=== PATIENT | female | born 1975 | race Caucasian/White ===

== ENCOUNTER 2016-10-14 06:27 | Inpatient (IN) | payer SELFPAY ==
[~2016-10-14 06:27] MED LIST: Buffered Lidocaine 1% SYR 3ML* 3 ML/SYR SYRINGE INTRADERM ONE; Famotidine IV* 10 MG/ML 2 ML (20 mg) IV ONE; PROCHLORPERAZINE INJ 5 MG/ML 2 ML VIAL IV PRN; oxyCODONE/Acetamin 5/325 MG* TAB PO PRN
[2016-10-14 07:07] LABS: UR Preg Internal Control QC Line Present
[2016-10-14] MEDS ORDERED: Methylene Blue 1%* 10 ML VIAL ONE ×2 (07:11→09:23)
[2016-10-14] MEDS ORDERED: EPINEPHrine AMP 1 MG/ML ONE (07:11)
[2016-10-14] MEDS ORDERED: Lidocaine 2% PF* 10 ML AMP ONE ×2 (07:11→08:21)
[2016-10-14] MEDS ORDERED: Sodium Bicarbonate 8.4% SYR* 10 ML SYRINGE ONE (07:12)
[2016-10-14] MEDS ORDERED: Bupivacaine 0.5% SDV PF* 30 ML VIAL ONE (07:12)
[2016-10-14] MEDS ORDERED: Ondansetron INJ* 2 MG/ML VIAL ONE (07:14)
[2016-10-14] MEDS ORDERED: Famotidine IV* 10 MG/ML 2 ML (20 mg) ONE (07:15)
[2016-10-14] MEDS ORDERED: Dexamethasone IV* 4 MG/ML 1 ML (4 MG) ONE (07:15)
[2016-10-14] MEDS ORDERED: Scopolamine 1.5 mg* PATCH ONE (07:15)
[2016-10-14] MEDS ORDERED: ceFAZolin 2 GM PREMIX (*) 2 GM/50 ML BAG IVPB ONE (07:15)
[2016-10-14] MEDS ORDERED: Midazolam* 1 MG/ML 5 ML VIAL (5 MG) ONE (07:21)
[2016-10-14] MEDS ORDERED: Atracurium* 10 MG/ML 10 ML VIAL ONE (07:21)
[2016-10-14] MEDS ORDERED: fentaNYL* 50 MCG/ML 2 ML VIAL (100 MCG VIAL) ONE ×4 (07:21→11:55)
[2016-10-14] MEDS ORDERED: KETAMINE HCL* 50 MG/ML 10 ML VIAL ONE (07:21)
[2016-10-14] MEDS ORDERED: Morphine INJ* 10 MG/ML 1 ML CARPUJECT ONE ×2 (08:12→11:24)
[2016-10-14] MEDS ORDERED: Propofol* 10 MG/ML 20 ML BTL IV PUSH ONE (08:21)
[2016-10-14] MEDS ORDERED: EPHEDrine (Pressors)* 50 MG/ML VIAL ONE (08:35)
[2016-10-14] MEDS ORDERED: PROCHLORPERAZINE INJ 5 MG/ML 2 ML VIAL ONE (10:11)
[2016-10-14] MEDS: fentaNYL* 50 MCG/ML 2 ML VIAL (100 MCG VIAL) IV PRN ×5 (11:26→12:02)
[2016-10-14] MEDS: Morphine INJ* 2 MG/ML 1 ML CARPUJECT IV PRN ×2 (11:42→11:50)
[2016-10-14] MEDS ORDERED: Acetaminophen TAB* 325 MG PO PRN (13:08)
[2016-10-14] MEDS ORDERED: Magnesium Hydroxide LIQ* 30 ML UDC PO PRN (13:09)
[2016-10-14] MEDS ORDERED: Ondansetron INJ* 2 MG/ML VIAL IV PRN (13:09)
[2016-10-14] MEDS ORDERED: Al Hydrox/Mg Hydrox/Simet LIQ* 30 ML UDC PO PRN (13:09)
[2016-10-14] MEDS ORDERED: diPHENhydraMINE IV* 50 MG/ML 1 ml VIAL (BENADRYL) IV PRN (13:09)
[2016-10-14] MEDS ORDERED: diPHENhydraMINE PO* 25 MG PO PRN ×2 (13:10)
[2016-10-14] MEDS ORDERED: Cetirizine* 10 MG TAB PO PRN (13:10)
[2016-10-14] MEDS ORDERED: ALPRAZolam TAB* 0.25 MG PO PRN (13:11)
[2016-10-14] MEDS ORDERED: Mometasone 220 MCG MDI INH PRN (13:12)
[2016-10-14] MEDS ORDERED: Montelukast Sodium TAB* 10 MG PO PRN (13:14)
[2016-10-14] MEDS ORDERED: NS 0.9% 1000 ML* 1,000 ML IV SCH (13:15)
[2016-10-14] MEDS ORDERED: Albuterol HFA INHALER* 8 gm MDI INH PRN (13:15)
[2016-10-14] MEDS ORDERED: HYDROmorphone INJ* 1 MG/ML CARPUJECT SYRINGE ONE (13:18)
[2016-10-14] MEDS ORDERED: EPINEPHrine AMP 1 MG/ML IM PRN (13:19)
[2016-10-14] MEDS: HYDROmorphone INJ* 1 MG/ML CARPUJECT SYRINGE IV PRN ×2 (13:23→19:31)
[2016-10-14] MEDS: HYDROcodone/ACETAMIN 5-325 MG* 1 TAB PO PRN ×2 (15:11→21:32)
[2016-10-14] MEDS: Ascorbic Acid TAB* 500 MG PO SCH (18:15)
[2016-10-14] MEDS: [UNRECOGNIZED DRUG - OTHER] TOPICAL SCH (21:28)
[2016-10-15] MEDS: HYDROmorphone INJ* 1 MG/ML CARPUJECT SYRINGE IV PRN ×2 (00:05→06:19)
[2016-10-15] MEDS: HYDROcodone/ACETAMIN 5-325 MG* 1 TAB PO PRN ×3 (02:16→11:40)
[2016-10-15] MEDS: Ascorbic Acid TAB* 500 MG PO SCH (08:51)
[2016-10-15] MEDS: [UNRECOGNIZED DRUG - OTHER] TOPICAL SCH (08:54)
[2016-10-15] MEDS ORDERED: Vitamin THERAPEUTIC TAB PO SCH (09:00)
[2016-10-15] MEDS ORDERED: Ferrous Sulfate TAB* 325 MG PO SCH (09:00)
[2016-10-15] MEDS ORDERED: [UNRECOGNIZED DRUG - OTHER] PO SCH (09:00)
[2016-10-15 12:23] VITALS: BP 105/63
--- NOTE | 2017-01-30 10:28 | DS ---
DISCHARGE SUMMARY: DATE OF ADMISSION: 10/14/16 DATE OF DISCHARGE: 10/15/16 PRINCIPAL DIAGNOSIS: Cosmetic surgery. SUMMARY: The patient is a 41-year-old female who complained of loose skin in the abdomen after with twins. Her weight was 225 pounds at and she now weighs 135 pounds. Weight has been stable for over a year. The patient was taken to the operating room on 10/14/16 and underwent full abdominoplasty under general anesthesia. The patient tolerated the procedure well. Her in-hospital postoperative convalescent course was uncomplicated. By the next day, her pain was under control. She was able to ambulate and abdominal wound was noted to be healing well. She was discharged home with [address] with arrangements made for followup in my office in 5 days. The patient was given instructions including activity level, wound care, medication and followup. [id number] #: [id number] MTDD
== END 2016-10-15 12:15 | disposition home or self-care (01) | DRG 581 ==
LOC: AA 06:27 → SSU 12:52
PROVIDERS: ADMIT Plastic Surgery; ATTEND Plastic Surgery
PROC: 0W0F0ZZ Alteration of Abdominal Wall, Open Approach (ICD-10-PCS; principal; 2016-10-14 07:45)
DX: L98.7 Excessive and redundant skin and subcutaneous tissue (principal); F41.9 Anxiety disorder, unspecified; J45.909 Unspecified asthma, uncomplicated; Z91.040 Latex allergy status
CPT/HCPCS: 81025; 88300; A9270-GY; J0171; J0690; J0780; J1100; J1170; J2001; J2250; J2270; J2405; J2704; J3010

== ENCOUNTER 2017-04-23 09:11 | Day surgery (SDC) | payer SELFPAY ==
[~2017-04-23 09:11] MED LIST changes: +Buffered Lidocaine 0.9% SYRIN* 5 ML/SYR SYRINGE INTRADERM ONE; -Buffered Lidocaine 1% SYR 3ML* 3 ML/SYR SYRINGE INTRADERM ONE; -Famotidine IV* 10 MG/ML 2 ML (20 mg) IV ONE; -PROCHLORPERAZINE INJ 5 MG/ML 2 ML VIAL IV PRN; -oxyCODONE/Acetamin 5/325 MG* TAB PO PRN
[2017-04-23] MEDS ORDERED: Scopolamine 1.5 mg* PATCH ONE (09:19)
[2017-04-23] MEDS ORDERED: Ondansetron INJ* 2 MG/ML VIAL ONE (09:19)
[2017-04-23] MEDS ORDERED: ceFAZolin 2 GM PREMIX(*) 2 GM/50 ML BAG IVPB ONE (09:19)
[2017-04-23] MEDS ORDERED: Dexamethasone IV* 4 MG/ML 1 ML (4 MG) ONE (09:19)
[2017-04-23] MEDS ORDERED: Buffered Lidocaine 0.9% SYRIN* 5 ML/SYR SYRINGE ONE (09:20)
[2017-04-23] MEDS ORDERED: Midazolam* 1 MG/ML 2 ML VIAL (2 MG) ONE (12:03)
[2017-04-23] MEDS ORDERED: Propofol* 10 MG/ML 20 ML BTL IV PUSH ONE (12:03)
[2017-04-23] MEDS ORDERED: fentaNYL* 50 MCG/ML 2 ML VIAL (100 MCG VIAL) ONE ×2 (12:03→13:25)
[2017-04-23] MEDS ORDERED: EPINEPHrine AMP 1 MG/ML ONE (12:06)
[2017-04-23] MEDS ORDERED: Lidocaine 2% PF* 10 ML AMP ONE (12:06)
[2017-04-23] MEDS ORDERED: Sodium Bicarbonate 8.4% IV* 50 ML VIAL ONE (12:07)
[2017-04-23] MEDS ORDERED: Bupivacaine 0.25% SDV* 30 ML ONE (12:42)
[2017-04-23] MEDS ORDERED: Ondansetron INJ* 2 MG/ML VIAL IV PRN (12:50)
[2017-04-23] MEDS ORDERED: oxyCODONE TAB* 5 MG TAB PO PRN (12:50)
[2017-04-23] MEDS ORDERED: HYDROcodone/ACETAMIN 5-325 MG* 1 TAB PO PRN (12:50)
[2017-04-23] MEDS ORDERED: DiMENhydriNATE IV* 50 MG/ML VIAL IV PUSH PRN (12:50)
[2017-04-23] MEDS ORDERED: fentaNYL* 50 MCG/ML 2 ML VIAL (100 MCG VIAL) IV PRN (12:50)
[2017-04-23] MEDS ORDERED: HYDROcodone/ACETAMIN 5-325 MG* 1 TAB ONE (14:13)
[2017-04-23] MEDS ORDERED: DiMENhydriNATE IV* 50 MG/ML VIAL ONE (14:15)
[2017-04-23 14:52] VITALS: BP 119/70
== END 2017-04-23 15:17 | disposition home or self-care (01) ==
LOC: OREAST 09:11
PROVIDERS: ATTEND Plastic Surgery
DX: Z41.1 Encounter for cosmetic surgery (principal); J45.909 Unspecified asthma, uncomplicated; Z87.891 Personal history of nicotine dependence
CPT/HCPCS: 81025; A9270-GY; J0171; J0690; J1100; J1240; J2001; J2250; J2405; J2704; J3010

== ENCOUNTER 2019-01-02 09:33 | Emergency (ER) | payer BC ==
[2019-01-02 09:51] VITALS: BP 112/77
[2019-01-02 10:14] LABS: Influenza A Molecular POSITIVE (Negative)
--- NOTE | 2019-01-02 10:50 | UC ---
FLU HPI - HPI Summary HPI Summary: 43 y/o female with no PMH presents with recent dx and tx of strep throat last week treated with amoxicillin x 7 days. for 24 hours noted body aches, chills, chest "tightness" with coughing, + mild nasal congestion, fatigue. + flu shot. - History of Current Complaint Chief Complaint: UCRespiratory Stated Complaint: SORE THROAT Time Seen by Provider: 01/02/19 10:43 Hx Obtained From: Patient ?: No Onset/Duration: Sudden Onset, Lasting Days Severity Currently: Mild Severity Initially: Moderate Pain Intensity: 7 Pain Scale Used: 0-10 Numeric Associated Signs & Symptoms: Positive: F/C, Myalgia, Cough, Nasal Congestion, Headache - mild - Allergy/Home Medications Allergies/Adverse Reactions: Allergies Allergy/AdvReac Type Severity Reaction Status Date / Time latex Allergy Rash And Verified 01/02/19 09:51 Itching SEASONAL ALLERGIES Allergy Severe COUGHING, Uncoded 01/02/19 09:51 SNEEZE, WATERY EYES, DIFFICULTY BREATHING PMH/Surg Hx/FS Hx/Imm Hx Previously Healthy: Yes - Surgical History Surgical History: Yes Surgery Procedure, Year, and Place: 2006 BACK SURGERY L5-S1, [facility] [place]. 06/2010 CSECTION - TWINS, [place]. 05/2016 ENDOMETRIOSIS REMOVAL AROUND INTESTINES, [facility]. 10/2016 rad jacobson [facility] [place] - Social History Alcohol Use: Occasionally Alcohol Amount: WEEKENDS - SOCIALLY Substance Use Type: Marijuana Substance Use Comment - Amount & Last Used: daily Smoking Status (MU): Former Smoker Type: Cigarettes Amount Used/How Often: LESS THAN 1 PPD FOR ABOUT 24 YEARS Length of Time of Smoking/Using Tobacco: 24 YEARS Have You Smoked in the Last Year: No When Did the Patient Quit Smoking/Using Tobacco: 2009 - Immunization History Most Recent Influenza Vaccination: 2016 Most Recent Tetanus Shot: WITHIN LAST 10 YEARS Most Recent Pneumonia Vaccination: N/A Review of Systems All Other Systems Reviewed And Are Negative: Yes Constitutional: Positive: Chills, Fatigue Skin: Positive: Negative ENT: Positive: Sore Throat, Sinus Congestion, Sinus Pain/Tenderness Respiratory: Positive: Cough Musculoskeletal: Positive: Arthralgia, Myalgia Neurological: Positive: Headache Is Patient Immunocompromised?: No Physical Exam Triage Information Reviewed: Yes Appearance: No Pain Distress, Well-Nourished, Ill-Appearing - mild to moderate Vital Signs: Initial Vital Signs Temp 100.8 F 01/02/19 09:45 Pulse 83 01/02/19 09:45 Resp 18 01/02/19 09:45 BP 112/77 01/02/19 09:45 Pulse Ox 100 01/02/19 09:45 Vital Signs Reviewed: Yes Eyes: Positive: Conjunctiva Clear ENT: Positive: Pharynx normal, TMs normal, Sinus tenderness - frontal b/l, Uvula midline. Negative: TM bulging, TM dull, TM red, Tonsillar swelling, Tonsillar exudate Neck: Positive: Supple, Nontender, No Lymphadenopathy. Negative: Nuchal Rigidity Respiratory: Positive: Chest non-tender, Lungs clear, Normal breath sounds, No respiratory distress, No accessory muscle use, Other: - tenderness to palpation to intercostal muscles R sided.. Negative: Crackles, Rhonchi, Stridor, Wheezing Cardiovascular: Positive: RRR, No Murmur Abdomen Description: Negative: CVA Tenderness (R), CVA Tenderness (L) Neurological Exam: Normal Flu Course/Dx - Course Course Of Treatment: rapid flu +, tamiflu given, work note, conservative treatment - Differential Dx/Diagnosis Provider Diagnosis: Influenza A Discharge - Sign-Out/Discharge Documenting (check all that apply): Patient Departure All imaging exams completed and their final reports reviewed: No Studies - Discharge Plan Condition: Good Disposition: HOME Prescriptions: Oseltamivir CAP* [Tamiflu CAP*] 75 mg PO BID #10 cap Patient Education Materials: Influenza (ED) Forms: *Work Release Referrals: Geena Suazo MD [Primary Care Provider] - Additional Instructions: - Increase fluid intake - Tamiflu to decrease symptoms - Motrin every 6-8 hours for 3 day to decrease muscle pain, irritation - Increase rest - Billing Disposition and Condition Condition: GOOD Disposition: Home
== END 2019-01-02 11:12 | disposition home or self-care (01) ==
LOC: UCEAST 09:33
DX: J10.1 Influenza due to other identified influenza virus with other respiratory manifestations (principal); Z91.040 Latex allergy status; Z91.09 Other allergy status, other than to drugs and biological substances; Z87.891 Personal history of nicotine dependence
CPT/HCPCS: 99212; G0463